=== PATIENT | male | born 1965 | race Caucasian/White ===

== ENCOUNTER 2024-11-02 19:05 | Emergency (ER) | payer OTHER, SELFPAY ==
[2024-11-02 19:10] VITALS: BP 143/77; PULSE 89; TEMP 36.6; O2SAT 95; BMI 23.7
--- NOTE | 2024-11-02 19:25 | ED_ITS ---
HPI - Extremity Problem General Chief complaint: Extremity Problem, Nontraumatic Stated complaint: REDNESS ON LEG, SENT BY URGENT CARE Time Seen by Provider: 11/02/24 19:20 Source: patient Mode of arrival: walk-in Limitations: no limitations History of Present Illness HPI Narrative: Patient is a 59-year-old male referred to the emergency department for redness and swelling to the left anterior ray that he noticed about a week ago. Urgent care sent him to the ER to rule out a blood clot. He has no calf swelling or redness. He has a warm, red and mildly raised area to the left anterior ray. No falls or injuries. No fevers, drainage. He has no other focal medical complaints. No history of DVT or PE. Related Data Home Medications ?Medication ?Instructions ?Recorded ?Confirmed valacyclovir 500 mg tablet mg 11/02/24 Previous Rx's ?Medication ?Instructions ?Recorded aspirin 81 mg capsule 81 mg PO DAILY #10 caps 11/02/24 ibuprofen 600 mg tablet 600 mg PO QID PRN pain #20 tabs 11/02/24 Allergies Allergy/AdvReac Type Severity Reaction Status Date / Time Penicillins Allergy Severe Anaphylaxis Verified 11/02/24 19:15 Review of Systems ROS Constitutional Denies: fever or chills Ears, nose, mouth, and throat Denies: throat pain or nasal congestion Cardiovascular Denies: chest pain Respiratory Denies: shortness of breath Gastrointestinal Denies: nausea or vomiting Integumentary/Breast Reports: rash, redness and skin pain Hematologic/Lymphatic Denies: easy bruising or easy bleeding PFSH PFSH Social History Little interest or pleasure in doing things: not at all Feeling down, depressed, or hopeless: not at all Exam Narrative Exam Narrative: Gen.: Awake, alert, in no distress Head: Normocephalic, atraumatic ENT: Moist mucous membranes Respiratory: No respiratory distress Extremities: Moves extremities equally, left anterior ray with raised erythema that is indurated, no open wounds or drainage. No red streaking Psych: Normal mood and affect Neuro: No focal neuro deficit Skin: Warm, dry, intact Constitutional Vital Signs, click to edit/add: Last Vital Signs Temp 98 F 11/02/24 19:10 Pulse 89 11/02/24 19:10 Resp 14 11/02/24 20:56 BP 143/77 H 11/02/24 19:10 Pulse Ox 95 11/02/24 19:10 O2 Del Method Room Air 11/02/24 19:10 Course Vital Signs Vital signs: Vital Signs Temperature 98 F 11/02/24 19:10 Pulse Rate 89 11/02/24 19:10 Respiratory Rate 18 11/02/24 19:10 Blood Pressure 143/77 H 11/02/24 19:10 Pulse Oximetry 95 11/02/24 19:10 Oxygen Delivery Method Room Air 11/02/24 19:10 Temperature 98 F 11/02/24 19:10 Pulse Rate 89 11/02/24 19:10 Respiratory Rate 14 11/02/24 20:56 Blood Pressure 143/77 H 11/02/24 19:10 Pulse Oximetry 95 11/02/24 19:10 Oxygen Delivery Method Room Air 11/02/24 19:10 MDM - Extremity (Nontraumatic) MDM Narrative Medical decision making narrative: Exam is benign, consistent with superficial phlebitis. Ultrasound shows no evidence of DVT with a small clot visualized in the area of redness that is raised. Patient has a history of varicose veins. He was instructed to take a baby aspirin daily and ibuprofen for redness and swelling. Apply warm compresses. Follow-up with PCP and return to the ER if symptoms change or worsen. SUPERVISED APC VISIT, PHYSICIAN ATTESTATION: Based on the medical record the care appears appropriate. ? Medical Records Attestation: I reviewed the patient's medical records. Imaging Data Venous US: Attestation: I have reviewed the pertinent imaging results. Discharge Plan Discharge Chief Complaint: Extremity Problem, Nontraumatic Clinical Impression: Superficial thrombophlebitis Patient Disposition: Home, Self-Care Time of Disposition Decision: 20:44 Condition: Good Prescriptions / Home Meds: New aspirin 81 mg capsule 81 mg PO DAILY Qty: 10 0RF ibuprofen 600 mg tablet 600 mg PO QID PRN (Reason: pain) Qty: 20 0RF Rx Instructions: take with food No Action valacyclovir 500 mg tablet Print Language: [place]i Instructions: Superficial Thrombophlebitis (ED) Referrals: [facility] [Primary Care Provider] - 1 week Discharge Date/Time: 11/02/24 20:59
== END 2024-11-02 20:59 | disposition home or self-care (01) ==
PROVIDERS: Emergency Provider Internal Medicine
DX: I80.02 Phlebitis and thrombophlebitis of superficial vessels of left lower extremity (principal)
CPT/HCPCS: 93971; 99284